=== PATIENT | female | born 1990 | race Caucasian/White ===

== ENCOUNTER 2021-11-25 04:34 | Inpatient (IN) | payer BC ==
[2021-11-25] MEDS ORDERED: Carboprost 250 MCG/ML AMP IM PRN (05:13)
[2021-11-25] MEDS ORDERED: Ibuprofen 800 MG TAB PO PRN (05:13)
[2021-11-25] MEDS ORDERED: Ondansetron PF 4 MG/2 ML Vial IVP PRN ×3 (05:13→12:34)
[2021-11-25] MEDS ORDERED: hydrALAZINE 20 MG/ML VIAL SLOW IVP PRN ×2 (05:13→12:34)
[2021-11-25] MEDS ORDERED: Lidocaine 1% (PF) 30 ML VIAL SC PRN (05:13)
[2021-11-25] MEDS ORDERED: Promethazine HCl 25 MG/ML VIAL IM PRN ×3 (05:13→12:34)
[2021-11-25] MEDS ORDERED: Acetaminophen 500 MG TAB PO PRN (05:13)
[2021-11-25] MEDS ORDERED: Butorphanol Tartrate 1 MG/ML VIAL SLOW IVP PRN (05:13)
[2021-11-25] MEDS ORDERED: Misoprostol 200 MCG TAB PR PRN (05:13)
[2021-11-25] MEDS ORDERED: NS w/ Oxytocin 30 units 500 ML IV SCH ×2 (05:15)
[2021-11-25] MEDS ORDERED: NS w/ Oxytocin 30 units 500 ML IVPB SCH (05:15)
[2021-11-25 05:23] VITALS: BMI 36.5
[2021-11-25] MEDS: Lactated Ringer's 1,000 ML IV SCH ×2 (05:30→06:20)
[2021-11-25 06:31] LABS: Hemoglobin 12.6 g/dL (12.0-15.5); Mean Corpuscular HGB CONC 31.7 g/dL (32.0-36.0); Mean Corpuscular Volume 78.9 fl (81.6-98.3); Mean Platelet Volume 9.9 fl (7.4-10.4); Platelet Count 298 10x3/uL (150-450); RBC Distribution Width 15.9 % (11.5-14.5); Red Blood Cell (RBC) Count 5.03 10x6/uL (3.90-5.03); White Blood Cell (WBC) Count 10.5 10x3/uL (3.5-10.5)
[2021-11-25 06:43] LABS: SARS-CoV-2 NAA Rapid Test Not Detected (NotDetected)
[2021-11-25] MEDS ORDERED: Fentanyl 4 mcg/Bup 0.1% Cadd 100 ML in Premix Bag 1 BAG EPIDURAL SCH (06:45)
[2021-11-25 06:46] LABS: Hep B Surf Ag Non-Reactive S/CO (NonReactive); Syphilis Antibody Nonreactive (Nonreactive); Syphilis Antibody Index 0.05 S/CO (<1.00 Non-Reactive)
[2021-11-25 06:58] LABS: HBSAg Index 0.15 S/CO (0-0.99)
[2021-11-25] MEDS ORDERED: Acetaminophen 325 MG TAB PO PRN (07:22)
[2021-11-25] MEDS ORDERED: Lactated Ringer's 500 ML IV PRN (07:22)
[2021-11-25] MEDS ORDERED: Naloxone HCl 0.4 mg/ml Vial IVP PRN ×2 (07:22)
[2021-11-25] MEDS ORDERED: Hydrocerin (Eucerin) Cream 120 gm Jar TOP PRN (07:22)
[2021-11-25] MEDS ORDERED: ePHEDrine Sulfate 50 MG/10 ML VIAL SLOW IVP PRN (07:22)
[2021-11-25] MEDS ORDERED: diphenhydrAMINE 50 MG/ML VIAL IVP PRN (07:22)
[2021-11-25] MEDS ORDERED: Communication Order-Pharmacy FS PRN (07:30)
[2021-11-25] MEDS ORDERED: Fentanyl 2 mcg/Bupivacaine 0.1% Cassette 100 ML EPIDURAL SCH (07:30)
[2021-11-25] MEDS ORDERED: Zolpidem Tartrate 5 MG TAB PO PRN (12:34)
[2021-11-25] MEDS ORDERED: Milk Of Magnesia 30 ML UDCUP PO PRN (12:34)
[2021-11-25] MEDS ORDERED: Boostrix 0.5 ML (Tdap) VIAL IM ONE (12:34)
[2021-11-25] MEDS ORDERED: HYDROcodone/Acetaminophen 5/325 mg Tablet PO PRN ×2 (12:34)
[2021-11-25] MEDS ORDERED: diphenhydrAMINE 25 MG CAP PO PRN (12:34)
[2021-11-25] MEDS ORDERED: Bisacodyl 10 MG SUPP PR PRN (12:34)
[2021-11-25] MEDS ORDERED: Preparation H Ointment 28 GM TUBE PR PRN (12:34)
[2021-11-25] MEDS ORDERED: Lanolin Ointment 7 GM TUBE TOP PRN (12:34)
[2021-11-25] MEDS ORDERED: Benzocaine-Menthol 82.5 ML CAN TOP PRN (12:34)
[2021-11-25] MEDS: Ibuprofen 800 MG TAB PO SCH ×2 (14:22→22:18)
[2021-11-25] MEDS: Ferrous Sulfate 325 MG TAB PO SCH (16:02)
[2021-11-25] MEDS: Docusate Calcium (SURFAK) 240 MG CAP PO SCH (22:19)
[2021-11-26] MEDS: Ibuprofen 800 MG TAB PO SCH (06:09)
[2021-11-26] MEDS: Ferrous Sulfate 325 MG TAB PO SCH (07:40)
[2021-11-26] MEDS ORDERED: Prenatal Vitamin 1 TAB PO SCH (09:00)
[2021-11-26] MEDS: Docusate Calcium (SURFAK) 240 MG CAP PO SCH (09:27)
[2021-11-26 11:54] VITALS: BP 129/62; TEMP 98
== END 2021-11-26 13:25 | disposition home or self-care (01) | DRG 807 ==
LOC: CSHLD/OP 04:34 → CSHLD 05:44 → CSHPP 13:15
PROVIDERS: ADMIT Student in an Organized Health Care Education/Training Program; ATTEND Student in an Organized Health Care Education/Training Program
PROC: 10E0XZZ Delivery of Products of Conception, External Approach (ICD-10-PCS; principal; 2021-11-25)
DX: O80 Encounter for full-term uncomplicated delivery (principal); Z37.0 Single live birth; Z3A.38 38 weeks gestation of pregnancy; Z20.822 Contact with and (suspected) exposure to COVID-19
CPT/HCPCS: 51702; 85027; 86780; 86850; 86900; 86901; 87340; 99285; J7120; U0002